=== PATIENT | male | born 1940 | race Caucasian/White ===

== ENCOUNTER → 2016-08-28 | Outpatient (CLI) | payer MEDICARE, OTHER ==
[~2016-08-28] MED LIST: ALEVE220 M1 PO; ASPIR-TRIN325 MG PO; ASPIRIN81 MG PO; BACTROBAN22 G1 TOP; CARDIZEM CD240 MG PO; CERTAVITE SR-AN1 TAB PO; CIALIS20 MG PO; FISH OIL1 GM PO; FREESTYLE TEST1 EACH SUBCUT; GLUCOPHAGE XR500 MG PO; LABETALOL HCL200 MG PO; MILK OF MAGNESI30 ML PO; MOBIC15 MG PO; PRAVACHOL40 M1 PO; PRINIVIL20 MG PO; PROTONIX20 MG PO; SYNTHROID50 MCG PO; TUMS500 MG PO; ULTRAM50 MG PO; VITAMIN B-121000 MCG PO; VITAMIN D1000 UNIT PO
== END | disposition short-term general hospital (02) ==
LOC: CLCARD 09:42
DX: I48.1 Persistent atrial fibrillation (principal); I10 Essential (primary) hypertension; E78.5 Hyperlipidemia, unspecified; E11.9 Type 2 diabetes mellitus without complications; I49.3 Ventricular premature depolarization; E03.9 Hypothyroidism, unspecified

== ENCOUNTER → 2016-09-07 | Outpatient (CLI) | payer MEDICARE, OTHER | END | disposition short-term general hospital (02) | LOC: CLCARD 08:55 | DX: I48.91 Unspecified atrial fibrillation (principal); I10 Essential (primary) hypertension; E78.5 Hyperlipidemia, unspecified; E11.9 Type 2 diabetes mellitus without complications; N52.9 Male erectile dysfunction, unspecified; R94.39 Abnormal result of other cardiovascular function study; I42.9 Cardiomyopathy, unspecified; I34.0 Nonrheumatic mitral (valve) insufficiency; I07.1 Rheumatic tricuspid insufficiency; I27.2 Other secondary pulmonary hypertension; Z79.899 Other long term (current) drug therapy ==